=== PATIENT | female | born 1970 | race Caucasian/White ===

== ENCOUNTER 2023-08-30 20:05 | Emergency (ER) | payer BC ==
[2023-08-30 20:15] VITALS: BP 96/66; PULSE 79; RESP 18; TEMP 98.1; BMI 21.9
[2023-08-30 22:06] LABS: BASO % 0.5 % (0-2.0); EOS % 1.1 % (0-4.5); HEMATOCRIT 43.5 % (32.4-45.2); HEMOGLOBIN 14.3 GM/dL (10.7-15.3); LYMPH % 12.3 % (8-40); MCH 29.9 pg (25.7-33.7); MCHC 32.7 g/dl (32.0-36.0); MEAN CELL VOLUME 91.4 fl (80-96); MEAN PLT VOLUME 7.9 fl (7.5-11.1); MONO % 4.3 % (3.8-10.2); NEUT % 81.8 % (42.8-82.8); PLATELET COUNT 289 10^3/uL (134-434); RBC 4.76 M/mm3 (3.60-5.2); RDW 12.7 % (11.6-15.6); WHITE BLOOD COUNT 7.9 K/mm3 (4.0-10.0)
[2023-08-30 22:33] LABS: POTASSIUM 4.7 mmol/L (3.5-5.1)
[2023-08-30 22:35] LABS: CALCIUM 9.7 mg/dL (8.5-10.1)
[2023-08-30 22:36] LABS: ALBUMIN 4.2 g/dl (3.4-5.0)
[2023-08-30 22:39] LABS: CREATININE 0.7 mg/dL (0.55-1.3)
[2023-08-30 22:40] LABS: BILIRUBIN,TOTAL 0.5 mg/dL (0.2-1)
[2023-08-30 22:41] LABS: TOT PROT 8.2 g/dl (6.4-8.2)
== END 2023-08-30 23:35 | disposition home or self-care (01) ==
LOC: JER 20:05
DX: R06.2 Wheezing (principal); R10.9 Unspecified abdominal pain; R11.0 Nausea; Z20.822 Contact with and (suspected) exposure to COVID-19
CPT/HCPCS: 0241U-QW; 36415; 71046-TC-FY; 80053; 84484; 85025; 93005; 93010; 99285-25